=== PATIENT | female | born 2000 | race African-American/Black ===

== ENCOUNTER 2024-04-21 10:42 | Emergency (ER) | payer MEDICAID, OTHER ==
[~2024-04-21] VITALS: Ht 177.8 cm; Wt 85.0 kg
[2024-04-21 11:21] LABS: Basophils # (auto) 0.1 10 ^3/uL (0-0.2); Eosinophils # (auto) 0.1 10 ^3/uL (0-0.8); Hemoglobin 13.2 g/dL (12.2-16.2); Lymphocytes # (auto) 2.6 10 ^3/uL (0.4-5.4)
[2024-04-21 11:22] LABS: Eosinophils % (auto) 0.6 % (0.0-7.0); Lymphocytes % (auto) 29.4 % (10.0-50.0); Mean Corpuscular Hemoglobin 25.1 pg (28.0-32.0); Mean Corpuscular Volume 78.4 fL (80.0-100.0); Monocytes # (auto) 0.5 10 ^3/uL (0-1.3); Neutrophils # (auto) 5.6 10 ^3/uL (1.6-8.6); Nucleated Red Blood Cells % 0.1 %; Platelet Count (auto) 465 10^3/uL (140-450); Red Blood Cells 5.24 10^6/uL (4.0-5.20); Red Cell Distribution Width 17.3 % (11.8-14.3); White Blood Cell 8.9 10^3/uL (4.4-10.8)
[2024-04-21] MEDS: HYDROcodone-ACET 10/325MG TAB PO ONE (11:25)
[2024-04-21 11:27] VITALS: RESP 18
[2024-04-21 11:33] LABS: Chloride 105 mmol/L (98-107); Potassium 3.2 mmol/L (3.5-5.1); Sodium 140 mmol/L (136-145)
[2024-04-21 11:34] LABS: Anion Gap 12 (5-15); Calcium 10.4 mg/dL (8.7-10.4); Carbon Dioxide 23 mmol/L (20-31)
[2024-04-21 11:39] LABS: BUN/Creatinine Ratio 7.8 (10.0-20.0); Blood Urea Nitrogen 7 mg/dL (9-23); Glucose 104 mg/dL (74-106)
[2024-04-21 13:54] VITALS: TEMP 98.5
[2024-04-21 16:20] LABS: Urine Bacteria FEW /hpf (None Seen); Urine Blood Negative /uL (Negative); Urine Mucus FEW (None Seen); Urine Protein, UAD 2+ (Negative); Urine Urobilinogen 4 mg/dL (Negative); Urine WBC 17 /hpf (0 - 5); Urine pH 6.5 (5.0-9.0)
[2024-04-21 16:23] LABS: Urine Clarity Turbid (Clear); Urine Color Yellow (Yellow)
[2024-04-21] MEDS ORDERED: CIPR-173 PO (16:37)
[2024-04-21] MEDS ORDERED: ZOFR4T PO (16:37)
[2024-04-21 16:56] VITALS: BP 121/79; PULSE 84; RESP 18; O2SAT 98
== END 2024-04-21 16:58 | disposition home or self-care (01) ==
LOC: ER 10:42
DX: N39.0 Urinary tract infection, site not specified (principal); R10.2 Pelvic and perineal pain; R11.2 Nausea with vomiting, unspecified; F15.90 Other stimulant use, unspecified, uncomplicated; Z98.890 Other specified postprocedural states; Z79.899 Other long term (current) drug therapy
CPT/HCPCS: 36415; 74176; 80048; 81001; 81025; 84702; 85025